=== PATIENT | male | born 1955 | race Caucasian/White ===

== ENCOUNTER 2018-06-17 15:47 | Outpatient (CLI) | payer BC ==
[2018-06-17 16:58] LABS: Mean Corpuscular HGB CONC 33.9 g/dL (32.0-36.0); Mean Corpuscular Hemoglobin 31.7 pg (27.0-31.0); Mean Corpuscular Volume 93.5 fL (78.0-98.0); Mean Platelet Volume 7.8 fL (7.4-10.4); Platelet Count 244 thou/uL (130-400); RBC Distribution Width 11.4 % (11.5-14.5); Red Blood Cell (RBC) Count 4.72 mill/uL (4.70-6.10); White Blood Cell (WBC) Count 8.1 thou/uL (4.8-10.8)
[2018-06-17 17:22] LABS: Anion Gap 13 mmol/L (10-20); BUN (Urea Nitrogen) 15 mg/dL (8.4-25.7); Calc. Creatinine Clearance 0 mL/min (70-130); Carbon Dioxide 27 mmol/L (23-31); Chloride 105 mmol/L (98-107); Estimated GFR-MDRD 72; Glucose 85 mg/dL (80-115); Potassium 3.8 mmol/L (3.5-5.1); Sodium 141 mmol/L (136-145)
== END 2018-06-17 15:48 | disposition home or self-care (01) ==
LOC: LABBT 15:47
PROVIDERS: ATTEND Urology
DX: Z01.812 Encounter for preprocedural laboratory examination (principal); N40.0 Benign prostatic hyperplasia without lower urinary tract symptoms; R97.20 Elevated prostate specific antigen [PSA]; R31.29 Other microscopic hematuria; N52.9 Male erectile dysfunction, unspecified; R35.1 Nocturia; Z87.442 Personal history of urinary calculi
CPT/HCPCS: 80048; 81001; 85027

== ENCOUNTER 2018-06-25 06:37 | Day surgery (SDC) | payer BC ==
[2018-06-17 16:12] VITALS: BMI 28.2
[2018-06-25] MEDS ORDERED: Levofloxacin 500 mg/D5W 100 ml Premix Bag ONE (07:21)
[2018-06-25] MEDS ORDERED: Dexamethasone 4 mg/ml Vial SLOW IVP SCH (07:30)
[2018-06-25] MEDS ORDERED: Dexamethasone 4 mg/ml Vial ONE (07:53)
[2018-06-25] MEDS ORDERED: Fentanyl 100 MCG/2 ML VIAL ONE ×2 (09:01)
[2018-06-25] MEDS ORDERED: B & O ONE (11:02)
[2018-06-25] MEDS ORDERED: Furosemide 20 MG/2 ML VIAL ONE (11:02)
--- NOTE | 2018-06-25 13:35 | OP ---
DATE OF PROCEDURE: 06/25/2018 PREOPERATIVE DIAGNOSIS: Benign prostatic hypertrophy. POSTOPERATIVE DIAGNOSIS: Benign prostatic hypertrophy. PROCEDURE: GreenLight vaporization of prostate using approximately 140,000 joules. COMPLICATIONS: No complications. SPECIMENS: Prostate. BLOOD LOSS: Less than 100. There was some oozing from the lateral veins that coag was used for, but otherwise the case was unremarkable. Good stream when the scope was removed. DRAINS REMAININ-[place] 2-way. INDICATIONS: The patient is a 62-year-old male who was followed in the office for BPH and elected to have definitive surgical intervention. TECHNIQUE: The patient was brought into the room by Anesthesia, laid on the table in supine position . After receiving general anesthetic, his legs were placed in lithotomy position and his perineum wa s prepped and draped in sterile fashion. Using a 22.5 [place] cystoscope the urethra was traversed. There was narrowing in the bulbar urethra that the scope pushed through and then entered the bladder. The ureteral orifices were identified and preserved throughout the case. A power of 80 was used to the bladder neck in view and a power level of 180 was used in the mid gland, middle lobe was taken d own and partially enucleated as there were chips to be evacuated out and then when the bladder was de compressed to check for bleeding there was significant oozing noted there was just some generally, co uld not find any significant ones worse when the bladder finally got full enough to identify the sour ce of bleeding there were 2 spots on either lateral more distal portions of the prostatic urethra, so further resection in this area and a small amount of coagulation was used on each side to help with the hemostasis and the bladder was very low on the pressure and fullness it would ooze, but otherwise , there was no significant bleeding. All the chips were removed. The scope was removed a good stre am was noted. Scope was put back in and then the bladder filled when the scope was removed. A 20 Fr ench catheter was placed and the balloon initially blown up to 20 mL and then held pressure for appro ximately 3 minutes, I took the balloon back down to 13 mL and held more pressure. The urine that was being returned was clear, similar to the influx that was being placed intermittently so at this poin t, the catheter was secured, and the patient was fully awakened and transferred to the PACU in stable condition.
[2018-06-25] MEDS ORDERED: PROPOFOL 200 MG/20 ML VIAL ONE (15:45)
[2018-06-25] MEDS ORDERED: Lidocaine 1% PF 5 ML VIAL ONE (15:45)
== END 2018-06-25 14:30 | disposition home or self-care (01) ==
LOC: SDC 06:37
PROVIDERS: ATTEND Urology
PROC: 0V507ZZ Destruction of Prostate, Via Natural or Artificial Opening (ICD-10-PCS; principal; 2018-06-25)
DX: N40.1 Benign prostatic hyperplasia with lower urinary tract symptoms (principal); R35.1 Nocturia; R97.20 Elevated prostate specific antigen [PSA]; N52.9 Male erectile dysfunction, unspecified; I10 Essential (primary) hypertension; Z87.442 Personal history of urinary calculi; Z79.899 Other long term (current) drug therapy
CPT/HCPCS: 88305; J1100; J1940; J1956; J2001; J2704; J3010

== ENCOUNTER 2025-03-18 08:05 | Outpatient (CLI) | payer OTHER | END 2025-03-18 08:06 | disposition home or self-care (01) | LOC: BICCT 08:05 | PROVIDERS: ATTEND Internal Medicine Cardiovascular Disease | DX: E78.2 Mixed hyperlipidemia (principal); I25.10 Atherosclerotic heart disease of native coronary artery without angina pectoris | CPT/HCPCS: 75571 ==